=== PATIENT | male | born 1995 | race Caucasian/White ===

== ENCOUNTER 2022-03-21 01:14 | Emergency (ER) | payer OTHER ==
[2022-03-21 01:22] VITALS: BP 166/110; PULSE 140; RESP 20; TEMP 97.5; BMI 29.5
[2022-03-21] MEDS ORDERED: DIPHTH,PERTUSS(ACELL),TET 0.5 ML DISP.SYRIN IM ONE ×2 (01:38→02:31)
[2022-03-21] MEDS ORDERED: ACETAMINOPHEN 1000 MG/100 ML BAG IVPB ONE (01:38)
[2022-03-21] MEDS ORDERED: ACETAMINOPHEN INJECTION 100 ML IVPB ONE (02:31)
[2022-03-21 02:59] LABS: BASO % 0.6 % (0-2.0); EOS % 0.2 % (0-4.5); HEMOGLOBIN 15.2 GM/dL (11.7-16.9); LYMPH % 15.8 % (8-40); MCHC 35.3 g/dl (32.0-35.9); MEAN CELL VOLUME 90.5 fl (80-96); MEAN PLT VOLUME 8.3 fl (7.5-11.1); MONO % 5.6 % (3.8-10.2); NEUT % 77.8 % (42.8-82.8); PLATELET COUNT 291 10^3/uL (134-434); RBC 4.75 M/mm3 (4.00-5.60); RDW 13.1 % (11.9-15.9); WHITE BLOOD COUNT 9.8 K/mm3 (4.0-10.0)
[2022-03-21 03:19] LABS: CALCIUM 8.8 mg/dL (8.5-10.1)
[2022-03-21 03:20] LABS: INR 1.13 (0.83-1.09)
[2022-03-21 03:21] LABS: ALBUMIN 4.4 g/dl (3.4-5.0); BLOOD UREA NITROGEN 11.2 mg/dL (7-18)
[2022-03-21 03:23] LABS: ACTIVATED PTT 31.2 SECONDS (25.2-36.5); CREATININE 0.9 mg/dL (0.55-1.3)
[2022-03-21 03:26] LABS: BILIRUBIN,TOTAL 0.4 mg/dL (0.2-1); TOT PROT 8.3 g/dl (6.4-8.2)
== END 2022-03-21 04:48 | disposition home or self-care (01) ==
LOC: JER 01:14
PROC: 0HQ1XZZ Repair Face Skin, External Approach (ICD-10-PCS; principal; 2022-03-21)
PROC: 3E0234Z Introduction of Serum, Toxoid and Vaccine into Muscle, Percutaneous Approach (ICD-10-PCS; 2022-03-21)
PROC: 3E033GC Introduction of Other Therapeutic Substance into Peripheral Vein, Percutaneous Approach (ICD-10-PCS; 2022-03-21)
DX: S01.81XA Laceration without foreign body of other part of head, initial encounter (principal); Y04.0XXA Assault by unarmed brawl or fight, initial encounter
CPT/HCPCS: 12011-25; 36415; 70450-TC; 70486-TC; 71045-TC-FY; 72125-TC; 80053; 85025; 85610; 85730; 86850; 86900; 86901; 90471; 90715; 93005; 93010; 96374; 99285-25

== ENCOUNTER 2022-12-06 13:13 | Emergency (ER) | payer OTHER ==
[2022-12-06 13:28] VITALS: BP 144/87; PULSE 84; RESP 18; TEMP 97.8; BMI 29.5
[2022-12-06] MEDS ORDERED: LIDOCAINE 5% TOPICAL PATCH TP ONE (13:47)
[2022-12-06] MEDS ORDERED: METHOCARBAMOL 500 MG TABLET PO ONE (13:47)
[2022-12-06] MEDS ORDERED: KETOROLAC TROMETHAMINE 30 MG/1 ML VIAL IM ONE (13:48)
[2022-12-06] MEDS ORDERED: LIDOCAINE 5% TOPICAL PATCH ONE (13:51)
[2022-12-06] MEDS ORDERED: KETOROLAC TROMETHAMINE 30 MG/1 ML VIAL ONE (13:51)
[2022-12-06] MEDS ORDERED: METHOCARBAMOL 500 MG TABLET ONE (13:51)
== END 2022-12-06 14:39 | disposition home or self-care (01) ==
LOC: JERFT 13:13
PROC: 3E0233Z Introduction of Anti-inflammatory into Muscle, Percutaneous Approach (ICD-10-PCS; principal; 2022-12-06)
DX: M54.50 Low back pain, unspecified (principal); V49.40XA Driver injured in collision with unspecified motor vehicles in traffic accident, initial encounter; Y93.I9 Activity, other involving external motion
CPT/HCPCS: 99284-25